=== PATIENT | female | born 1955 | race Two or more races ===

== ENCOUNTER 2019-01-27 07:36 | Inpatient (IN) | payer OTHER ==
[~2019-01-27] VITALS: Ht 165.1 cm; Wt 96.8 kg
--- NOTE | 2019-01-27 08:00 | NUR ---
KITCHENHAND NOTES PATIENT DIRECT ADMIT FROM [facility] BROUGHT BY AMBULANCE. PATIENT A/O X4 ZAMBIAN SPEAKER ON MED SURGE Dx. OF CHOLECYSTITIS. PATIENT WAS COMPLAINING OF PAIN IN RIGHT UPPER ABDOMEN 8/10 PER PAIN SCALE. PATIENT HAS NO ACUTE RESPIRATORY DISTRESS, UNLABORED, LUNGS ARE CLEAR DURING AUSCULTATION. V/S TAKEN BP-128/70,P-77, R-19, O2-94 ROOM AIR, T-99. SKIN ASSESSMENT DONE SKIN CLEAR, INTACT. PATIENT AMBULATORY USING BATHROOM. DAUGHTER NEXT TO THE BED. MRSA OF NARES SWAB TAKEN. DERRICK GRINDER OPERATOR AWARE OF NEW PATIENT. CALL LIGHT WITHIN TO REACH. BELONGING CHECKED. SAFETY PRECAUTION MAINTAINED ALL THE TIME. CONTINUED MONITORING.
[2019-01-27 08:15] VITALS: BP 128/70
[2019-01-27] MEDS ORDERED: ACETAMINOPHEN 325 MG TABLET PO PRN (11:30)
[2019-01-27] MEDS ORDERED: Z GUARD REMEDY 2 OZ OINT TP PRN (11:30)
[2019-01-27] MEDS ORDERED: MAG HYDROX/AL HYDROX/SIMETH 30 ML UDC PO PRN (11:30)
[2019-01-27] MEDS ORDERED: ONDANSETRON HCL/PF 4 MG/2 ML VIAL IVP PRN (11:30)
[2019-01-27] MEDS ORDERED: MAGNESIUM HYDROXIDE 30 ML UDC PO PRN (11:30)
[2019-01-27] MEDS ORDERED: ZOLPIDEM TARTRATE 5 MG TABLET PO PRN (11:30)
[2019-01-27] MEDS: IV NS 0.9% 1,000 ML IV PRN (11:48)
[2019-01-27] MEDS: HYDROMORPHONE 1 MG/1 ML DISP.SYRIN IV PRN (11:49)
--- NOTE | 2019-01-27 11:49 | NUR ---
RN NOTES ADMINISTERED DILAUDID 0.25 MG /ML IV PUSH PER PATIENT REQUEST FOR UPPER ABDOMINAL PAIN 06/22, V/S TAKEN BP 128/70, P-77, CONTINUED MONITORING.
[2019-01-27] MEDS: ENOXAPARIN SODIUM 40 MG/0.4 ML DISP.SYRIN SQ SCH (11:50)
[2019-01-27] MEDS ORDERED: CEFTRIAXONE 1 G in IV D5W 50 ML IV SCH (12:00)
[2019-01-27 12:28] LABS: ALBUMIN 3.9 g/dL (3.4-5.0); BILIRUBIN,TOTAL 0.5 mg/dL (0.2-1.0); CALCIUM, SERUM 9.1 mg/dL (8.5-10.1); CREATININE 0.8 mg/dL (0.6-1.3); PHOSPHORUS 3.8 mg/dL (2.5-4.9); POTASSIUM 3.5 mmol/L (3.5-5.1); TOTAL PROTEIN, SERUM 8.3 g/dL (6.4-8.2)
[2019-01-27 12:48] VITALS: BP 128/70
[2019-01-27 13:10] LABS: BASOPHILS % (AUTO) 0.1 % (0.0-2.0); EOSINOPHILS % (AUTO) 0.1 % (0.0-6.0); HEMATOCRIT 42 % (33-45); HEMOGLOBIN 14.2 g/dL (11.5-14.8); LYMPHOCYTES % (AUTO) 9.7 % (20.0-44.0); MEAN CORPUSCULAR HGB CONC 34 g/dl (31.0-36.0); MEAN CORPUSCULAR VOLUME 94 fL (82-100); MONOCYTES # (AUTO) 0.9 /CMM (0.1-1.30); MONOCYTES % (AUTO) 8.2 % (2.0-12.0); NEUTROPHILS # (AUTO) 8.6 /CMM (1.8-8.9); NEUTROPHILS % (AUTO) 81.9 % (43.0-81.0); PLATELET COUNT (AUTO) 212 /CMM (150-450); RED BLOOD CELL COUNT(AUTO) 4.42 MIL/uL (4.0-5.2); WHITE BLOOD COUNT (AUTO) 10.5 K/uL (4.3-11.0)
[2019-01-27 13:29] LABS: BILIRUBIN,DIRECT 0.1 mg/dL (0.0-0.2); BILIRUBIN,TOTAL 0.5 mg/dL (0.2-1.0)
--- NOTE | 2019-01-27 14:37 | NUR ---
RN NOTES PATIENT SPRAYER MACHINE FOR HIDA SCAN AT THIS TIME, PATIENT SIGN CONSENT FORM.
[2019-01-27] MEDS: PANTOPRAZOLE 40 MG VIAL IV SCH (14:39)
[2019-01-27 16:00] VITALS: BP 122/63
[2019-01-27] MEDS: HYDROCODONE/APAP 5/325MG 1 EACH TABLET PO PRN (16:07)
--- NOTE | 2019-01-27 16:07 | NUR ---
RN NOTES PATIENT BACK FROM HIDA SCAN,WAS COMPLAINING OF GENERALIZED PAIN 05/22, ADMINISTERED NARCO 5/325 MG PO PRN PER PATIENT REQUEST, FAMILY NEXT TO THE BED. CONTINUED MONITORING.
--- NOTE | 2019-01-27 16:10 | NUR ---
NM HIDA SCAN WAS COMPLETED. TECH:RB
--- NOTE | 2019-01-27 18:30 | NUR ---
RN NOTES PATIENT IN THE BED A/O X4 . PATIENT EATING, MEDICATION WERE ADMINISTERED FOR PAIN EFFECTIVE. INFUSING NS AT 75 ML/HE INTACT. FAMILY NEXT TO THE BED. CALL LIGHT WITHIN TO REACH. ENDORSED ONCOMING NURSE FOR PLAN OF CARE.
[2019-01-27 20:08] VITALS: BP 109/59
[2019-01-28] MEDS: HYDROCODONE/APAP 5/325MG 1 EACH TABLET PO PRN ×2 (01:27→11:08)
[2019-01-28] MEDS ORDERED: PIPERACILLIN /TAZOBACTAM 2.25 G VIAL IV ONE ×2 (01:41→06:01)
[2019-01-28] MEDS: PIPERACILLIN /TAZOBACTAM 4.5 G in IV D5W 50 ML IV SCH ×2 (01:42→06:27)
--- NOTE | 2019-01-28 06:00 | NUR ---
PT ALERT,ORIENTED, AMBULATORY ,WOLOF SPEAKING WITH FAMILY TRANSLATING. PT HAD CLEAR DIET FOR DINNER TOLERATED WELL ,DENIES ANY NAUSEA AND PAIN. THEN NPO AFTER MIDNIGHT. CONTINUE WITH IV FLUIDS ,GIVEN ZOSYN WITHOUT ADVERSE EFFECTS, URINE OBTAIN WILL SENT TO LAB. MEDICATED WITH AMBIEN AND NORCO FOR ABDOMIONAL PAIN EARLY THIS AM. WITH GOOD EFFECT ,SLEPT WELL. VSS,AFEBRILE .WILL CONTINUE TO MONITOR. CALL LIGHT AT REACHED.
[2019-01-28] MEDS: IV NS 0.9% 1,000 ML IV PRN (06:08)
[2019-01-28 06:29] LABS: BASOPHILS % (AUTO) 0.1 % (0.0-2.0); HEMATOCRIT 40 % (33-45); HEMOGLOBIN 13.3 g/dL (11.5-14.8); LYMPHOCYTES # (AUTO) 1.2 /CMM (0.8-4.8); LYMPHOCYTES % (AUTO) 7.9 % (20.0-44.0); MEAN CORPUSCULAR HGB CONC 34 g/dl (31.0-36.0); MEAN CORPUSCULAR VOLUME 93 fL (82-100); MONOCYTES # (AUTO) 1.8 /CMM (0.1-1.30); MONOCYTES % (AUTO) 12.1 % (2.0-12.0); NEUTROPHILS # (AUTO) 11.9 /CMM (1.8-8.9); NEUTROPHILS % (AUTO) 79.9 % (43.0-81.0); PLATELET COUNT (AUTO) 194 /CMM (150-450); RED BLOOD CELL COUNT(AUTO) 4.27 MIL/uL (4.0-5.2); WHITE BLOOD COUNT (AUTO) 14.8 K/uL (4.3-11.0)
[2019-01-28 06:46] LABS: APPEARANCE,URINE TURBID (CLEAR); BILIRUBIN,URINE NEGATIVE (NEGATIVE); BLOOD, URINE 1+ Ery/uL (NEGATIVE); KETONES,URINE 1+ (NEGATIVE); LEUKOCYTE ESTERASE ,URINE TRACE (NEGATIVE); NITRITE, URINE NEGATIVE (NEGATIVE); PH,URINE 6.5 (5.0-8.0); PROTEIN,URINE 1+ mg/dl (NEGATIVE); UGLUCOSE NEGATIVE (NEGATIVE); UROBILINOGEN,URINE 0.2 EU/dL (0.2)
[2019-01-28 06:48] LABS: COLOR,URINE DARK YELLOW (YELLOW)
[2019-01-28 06:51] LABS: CALCIUM, SERUM 8.6 mg/dL (8.5-10.1); CREATININE 0.7 mg/dL (0.6-1.3); MAGNESIUM 1.8 mg/dL (1.8-2.4); PHOSPHORUS 3.2 mg/dL (2.5-4.9); POTASSIUM 3.4 mmol/L (3.5-5.1)
[2019-01-28 06:56] LABS: BACTERIA,URINE Few /HPF (None Seen); WBC,URINE 0-2 /HPF (0-3)
[2019-01-28 06:57] LABS: SQUAMOUS EPITHELIAL CELL,UR Few /HPF (None Seen); URINE AMORPHOUS URATE Many /HPF (None Seen)
[2019-01-28 07:36] VITALS: BP 109/61
--- NOTE | 2019-01-28 08:00 | NUR ---
RN NOTES RECEIVED PATIENT IN THE BED RESTING. PATIENT NPO, NO ACUTE RESPIRATORY DISTRESS, V/S STABLE, PATIENT REFUSED PAIN AT THIS TIME. INFUSING NS AT LEFT AC AREA INTACT. SCHEDULED MEDICATION ADMINISTERED, PATIENT AMBULATORY, USING BATHROOM, CALL LIGHT WITHIN TO REACH, SAFETY PRECAUTION MAINTAINED ALL THE TIME.
--- NOTE | 2019-01-28 11:08 | NUR ---
rn notes administered narco 5/325 mg po prn for upper abdominal pain per patient request, v/s taken bp 110/69, p-92. continued monitoring.
[2019-01-28] MEDS: POTASSIUM CL. PREMIX PERIPHER. 50 ML IV SCH ×2 (11:42→12:34)
[2019-01-28] MEDS: ENOXAPARIN SODIUM 40 MG/0.4 ML DISP.SYRIN SQ SCH (11:46)
[2019-01-28] MEDS: PANTOPRAZOLE 40 MG VIAL IV SCH (13:46)
[2019-01-28] MEDS: PIPERACILLIN /TAZOBACTAM 3.375 G in IV D5W 100 ML IV SCH ×2 (13:46→20:27)
--- NOTE | 2019-01-28 15:58 | NUR ---
RN NOTES PATIENT STABLE AMBULATING IN THE HALLWAY, REFUSED PAIN, MEDICATION WERE ADMINISTERED EFFECTIVE, DAUGHTER NEXT TO THE PATIENT. CONTINUED MONITORING.
[2019-01-28 16:00] VITALS: BP 99/69
--- NOTE | 2019-01-28 18:35 | NUR ---
RN NOTES PATIENT IN THE BED STABLE, NPO. PATIENT REFUSED PAIN AT THIS TIME. INFUSING NS AT 75 ML/HR ON RIGHT AC AREA INTACT. DAUGHTER NEXT TO THE BED. CALL LIGHT WITHIN TO REACH. ENDORSED ONCOMING NURSE FOR PLAN OF CARE.
--- NOTE | 2019-01-28 19:00 | NUR ---
RN MS OPENING NOTES RECEIVED PATIENT IN BED AWAKE ALERT AND ORIENTED X4, ANGOLAN SPEAKING RESPIRATIONS EVEN AND UNLABORED WITH EQUAL RISE AND FALL OF CHEST, RESPIRATIONS EVEN AND UNLABORED WITH EQUAL RISE AND FALL OF CHEST, DENIES ANY PAIN OR DISCOMFORT , IV SITE TO LEFT HAND #22 AND RIGHT ARM #20, NO REDNESS, NO INFILTRATION, IVF RUNNING ORDERED, ORIENTED TO STAFF AND CALL LIGHT AND KEPT WITHIN REACH, SAFETY PRECAUTIONS IN PLACE, LOW BED AND LOCKED, BED ALARM IN PLACE, PATIENT AWARE OF NPO STATUS, ALL NEEDS ATTENDED AT THIS TIME, WILL CONTINUE TO MONITOR AND ADDRESS NEEDS.
[2019-01-28 20:00] VITALS: BP 111/72
[2019-01-28] MEDS: HYDROMORPHONE 1 MG/1 ML DISP.SYRIN IV PRN (20:59)
--- NOTE | 2019-01-28 20:59 | NUR ---
RN MS NOTES PATIENT COMPLAINT OF PAIN TO ABDOMEN AREA REQUESTING FOR PAIN MEDICATION ,STATES "8/10 ACHING PAIN " DILAUDID OFFERED AGREED TO TAKE DILAUDID 0.25 MG GIVEN ORDERED. REST WASTED AND VERIFIED WITH ANOTHER RN
[2019-01-29] VITALS (11 sets, daily range): BP systolic 87–117; BP diastolic 48–73
[2019-01-29] MEDS: HYDROMORPHONE 1 MG/1 ML DISP.SYRIN IV PRN (02:49)
[2019-01-29] MEDS: IV NS 0.9% 1,000 ML IV PRN (02:54)
[2019-01-29] MEDS: PIPERACILLIN /TAZOBACTAM 3.375 G in IV D5W 100 ML IV SCH ×3 (04:49→21:04)
--- NOTE | 2019-01-29 05:00 | NUR ---
RN MS NOTES RECEIVED CALLED FROM PER PATIENT IS SCHEDULED FOR LAPRASCOPIC CHOLECYSTECTOMY AT 10:30AM. TYPE AND SCREEN, CBC, BMP , PT, PTT, INR, IN PLACE ORDERED PER PROTOCOL. PATIENT MADE AWARE PER PATIENT WILL WAIT FOR DAUGHTER TO SIGN CONSENT FORMS IN AM.
--- NOTE | 2019-01-29 06:20 | NUR ---
RN MS NOTES PER FAMILY REQUESTED TO CALL IF ANY MD RECOMMENDATIONS CALLED NUMBER PROVIDED BY DAUGHTER FOR [place] [phone], UNABLE TO REACH AT THIS TIME, WILL ENDORSE TO NEXT SHIFT, ALSO MADE PATIENT AWARE IF SHE WOULD LIKE TO INFORM THEM WELL VIA HER PERSONAL CELL PHONE
--- NOTE | 2019-01-29 06:41 | NUR ---
RN MS CLOSING NOTES PATIENT IN BED AWAKE ALERT AND ORIENTED X4, BERMUDIAN SPEAKING , RESPIRATIONS EVEN AND UNLABORED WITH EQUAL RISE AND FALL OF CHEST, DENIES ANY PAIN OR DISCOMFORT AT THIS TIME , IV SITE TO LEFT HAND #22 AND RIGHT ARM #20, NO REDNESS, NO INFILTRATION, IVF RUNNING ORDERED, ZOSYN ATB RUNNING ORDERED, CALL LIGHT KEPT WITHIN REACH, SAFETY PRECAUTIONS IN PLACE, LOW BED AND LOCKED, BED ALARM IN PLACE, PATIENT AWARE OF NPO STATUS AND DR. HARDY PLAN FOR LAPRASCOPIC CHOLECYSTECTOMY, PER PATIENT WILL WAIT TO SIGN CONSENT WITH DAUGHTER, ALL NEEDS ATTENDED AT THROUGHOUT SHIFT, TOILETING OFFERED, WILL CONTINUE TO MONITOR AND ADDRESS NEEDS AND ENDORSE TO NEXT SHIFT.
[2019-01-29 06:47] LABS: BASOPHILS % (AUTO) 0.1 % (0.0-2.0); HEMATOCRIT 38 % (33-45); LYMPHOCYTES # (AUTO) 1.4 /CMM (0.8-4.8); LYMPHOCYTES % (AUTO) 8.7 % (20.0-44.0); MEAN CORPUSCULAR HGB CONC 35 g/dl (31.0-36.0); MEAN CORPUSCULAR VOLUME 94 fL (82-100); MONOCYTES # (AUTO) 1.9 /CMM (0.1-1.30); MONOCYTES % (AUTO) 11.6 % (2.0-12.0); NEUTROPHILS # (AUTO) 12.9 /CMM (1.8-8.9); NEUTROPHILS % (AUTO) 79.6 % (43.0-81.0); PLATELET COUNT (AUTO) 183 /CMM (150-450); RED BLOOD CELL COUNT(AUTO) 4.04 MIL/uL (4.0-5.2); WHITE BLOOD COUNT (AUTO) 16.2 K/uL (4.3-11.0)
[2019-01-29 07:01] LABS: CALCIUM, SERUM 8.4 mg/dL (8.5-10.1); CREATININE 0.7 mg/dL (0.6-1.3); PHOSPHORUS 2.4 mg/dL (2.5-4.9); POTASSIUM 3.3 mmol/L (3.5-5.1)
--- NOTE | 2019-01-29 07:30 | NUR ---
MS RN NOTES PATIENT RECEIVED RESTING INSIDE ROOM. AWAKE, ALERT AND ORIENTED, VERBALLY RESPONSIVE AND RESPONDS TO VERBAL AND TACTILE STIMULI. BREATHING EVEN AND UNLABORED. NO ACUTE DISTRESS AT THIS TIME. DENIES ANY PAIN OR DISCOMFORT. IV INTACT AND PATENT. PATIENT NPO SINCE MIDNIGHT. FOR YOLANDA LITTLE TODAY WITH DR. HARDY. PATIENT VERBALIZES UNDERSTANDING WITH EVERYTHING BUT WANTS TO WAIT FOR DAUGHTER PRIOR TO SIGNING ANY CONSENTS, MD AWARE. WILL CONTINUE TO MONITOR. BED LOCKED AND IN LOW POSITION. BILATERAL UPPER SIDE RAILS UP AND LOCKED. CALL LIGHT WITHIN EASY REACH
[2019-01-29] MEDS: POTASSIUM CL. PREMIX PERIPHER. 50 ML IV SCH ×2 (08:10→09:14)
--- NOTE | 2019-01-29 10:21 | NUR ---
MS RN NOTES PATIENT LEFT FOR SURGERY. PATIENT NOTED WITH TEMP OF 99.5. COOLING MEASURES IN PLACE. MD AWARE. PLACED CALL TO SURGICAL STAFF AND MADE AWARE. PATIENT LEFT UNIT VIA GURNEY. AWAKE, ALERT AND ORIENTED, NO ACUTE DISTRESS, NO CHANGES IN LOC NOTED. WILL CONTINUE TO MONITOR
[2019-01-29] MEDS ORDERED: HYDROMORPHONE INJ 2 MG/ML DISP.SYRIN ONE (10:24)
[2019-01-29] MEDS ORDERED: ROCURONIUM BROMIDE 50 MG/5 ML ONE ×2 (10:24→11:40)
[2019-01-29] MEDS ORDERED: BUPIVACAINE MPF 0.5% W/EPI INJ 30 ML VIAL ONE (11:08)
[2019-01-29] MEDS ORDERED: LIDOCAINE HCL/PF 1% 30 ML SDV ONE (11:08)
[2019-01-29] MEDS ORDERED: DESFLURANE 240 ML BOTTLE IH ONE (11:16)
[2019-01-29] MEDS: ENOXAPARIN SODIUM 40 MG/0.4 ML DISP.SYRIN SQ SCH (11:30)
[2019-01-29] MEDS ORDERED: CELLULOSE,OXIDIZED 1 EA PACK MC ONE (12:41)
[2019-01-29] MEDS ORDERED: Sodium Phosphate 7.5 MMOL in IV D5W 100 ML IV ONE (13:00)
[2019-01-29] MEDS: PANTOPRAZOLE 40 MG VIAL IV SCH (13:00)
[2019-01-29] MEDS ORDERED: BACITRACIN ZINC OINT (15 GM) 15 GM TUBE TP ONE (13:31)
--- NOTE | 2019-01-29 15:15 | NUR ---
MS RN NOTES PATIENT BACK TO FLOOR FROM RECOVERY. S/P CHOLECYSTECTOMY WITH DR. HARDY. REPORT RECEIVED FROM BETH SOLIS. PATIENT RECEIVED AWAKE, SLEEPY. VERBALLY RESPONSIVE AND RESPONDS TO VERBAL AND TACTILE STIMULI. NO ACUTE DISTRESS AT THIS TIME. HO DRAIN IN ABDOMEN AND DRAINING WELL. WILL CONTINUE TO MONITOR. ORDERS FROM DR. GUY, NOTED AND CARRIED OUT. PATIENT OK TO HAVE ICE CHIPS ONLY TODAY PER DR. HADRY. OK TO HAVE CLEAR LIQUID DIET STARTING TOMORROW AM. PATIENT MADE AWARE AND VERBALIZED UNDERSTANDING. WILL CONTINUE TO MONITOR.
[2019-01-29] MEDS: IV LR 1000 ML 1,000 ML IV PRN (18:07)
[2019-01-29] MEDS ORDERED: ONDANSETRON HCL/PF 4 MG/2 ML VIAL IVP PRN (18:30)
--- NOTE | 2019-01-29 18:38 | NUR ---
MS RN NOTES PATIENT RESTING INSIDE ROOM. SLEEPING, EASILY AROUSABLE THROUGH VERBAL AND TACTILE STIMULI. BREATHING EVEN AND UNLABORED. NO CHANGES IN LOC NOTED AT THIS TIME. NO ACUTE DISTRESS NOTED. CONTINUE ON MONITORING 2 S/P CHOLECYSTECTOMY WITH DR. HARDY. HO DRAIN PRESENT ABDOMEN WITH SANGUINEOUS DRAINAGE NOTED AT THIS TIME, DRAING WELL. IV INTACT AND PATENT. WILL ENDORSE TO INCOMING FOR VERONICA. BED LOCKED AND IN LOW POSITION. BILATERAL UPPER SIDE RAILS UP AND LOCKED. CALL LIGHT WITHIN EASY REACH
--- NOTE | 2019-01-29 19:35 | NUR ---
RN NOTES RECEIVED PATIENT, CHADIAN SPEAKING FAMILY MEMBERS AT BEDSIDE, PATIENT IS AWAKE, NO APPARENT DISTRESS NOTED, C/O MILD TOLERABLE PAIN, S/P LAP ANABEL, BREATHING EVEN AND UNLABORED, REPOSITIONED FOR COMFORT, ALL SAFETY MEASURES IN PLACED, ASPIRATION PRECAUTION MAINTAINED. IV ACCESS INTACT AND PATENT, WILL MONITOR ACCORDINGLY.
--- NOTE | 2019-01-29 19:50 | NUR ---
RN NOTES HO DRAINING WELL, TO A SEROSANGUINOUS FLUIDS, WILL CONTINUE TO MONITOR.
[2019-01-30] MEDS: MORPHINE SULFATE INJ 4 MG/ML DISP.SYRIN IV PRN ×2 (02:19→08:59)
[2019-01-30] MEDS: IV LR 1000 ML 1,000 ML IV PRN ×2 (02:44→09:21)
[2019-01-30] MEDS: PIPERACILLIN /TAZOBACTAM 3.375 G in IV D5W 100 ML IV SCH ×3 (04:57→20:09)
[2019-01-30 06:45] LABS: BASOPHILS % (AUTO) 0.1 % (0.0-2.0); EOSINOPHILS % (AUTO) 0.1 % (0.0-6.0); HEMATOCRIT 33 % (33-45); HEMOGLOBIN 11.1 g/dL (11.5-14.8); LYMPHOCYTES # (AUTO) 0.9 /CMM (0.8-4.8); LYMPHOCYTES % (AUTO) 7.4 % (20.0-44.0); MEAN CORPUSCULAR HGB CONC 34 g/dl (31.0-36.0); MEAN CORPUSCULAR VOLUME 94 fL (82-100); MONOCYTES # (AUTO) 1.2 /CMM (0.1-1.30); MONOCYTES % (AUTO) 9.4 % (2.0-12.0); NEUTROPHILS # (AUTO) 10.6 /CMM (1.8-8.9); PLATELET COUNT (AUTO) 196 /CMM (150-450); RED BLOOD CELL COUNT(AUTO) 3.46 MIL/uL (4.0-5.2); WHITE BLOOD COUNT (AUTO) 12.8 K/uL (4.3-11.0)
[2019-01-30 06:53] LABS: CALCIUM, SERUM 8.4 mg/dL (8.5-10.1); CREATININE 0.6 mg/dL (0.6-1.3); MAGNESIUM 1.9 mg/dL (1.8-2.4); PHOSPHORUS 2.3 mg/dL (2.5-4.9); POTASSIUM 3.9 mmol/L (3.5-5.1)
--- NOTE | 2019-01-30 06:54 | NUR ---
RN NOTES ALL NEEDS ATTENDED AND MET, ABLE TO REST AND SLEEP WITH MINIMAL DISCOMFORT. WILL ENDORSE TO AM NURSE FOR CONTINUITY OF CARE.
[2019-01-30 08:00] VITALS: BP 112/58
[2019-01-30 09:09] VITALS: BP 119/70
[2019-01-30] MEDS ORDERED: NEUTRA PHOS 1 POWD.PACKET PO ONE (10:30)
[2019-01-30] MEDS: PANTOPRAZOLE 40 MG VIAL IV SCH (13:00)
[2019-01-30] MEDS: HYDROCODONE/APAP 5/325MG 1 EACH TABLET PO PRN ×2 (13:15→17:32)
[2019-01-30] MEDS: ENOXAPARIN SODIUM 40 MG/0.4 ML DISP.SYRIN SQ SCH (13:15)
--- NOTE | 2019-01-30 14:13 | NUR ---
MEDICATION OF SODIUM PHOSSPHATE WAS DUE YESTERDAY
[2019-01-30 16:00] VITALS: BP 96/62
[2019-01-30] MEDS ORDERED: PANTOPRAZOLE 40 MG TABLET.DR PO ONE (17:00)
--- NOTE | 2019-01-30 19:25 | NUR ---
192 patient remain comfortable afebrile , tolerating clear liq diet with nausea , pt ambulated twice in the hallway , denies passing flatus , suad drain emptied 10cc, will endorse to night nurse
--- NOTE | 2019-01-30 19:45 | NUR ---
RN NOTES RECEIVED PATIENT AWAKE IN BED. A/O X 4. NO SIGNS OF RESPIRATORY DISTRESS. DENIES SHORTNESS OF BREATH. DENIES PASSING FLATUS. NO COMPLAINTS OF PAIN AT THIS TIME. ALL IV SITES PATENT. SAFETY PRECAUTIONS IMPLEMENTED: CALL LIGHT WITHIN REACH, BED IN LOWEST POSITION, SIDE RAILS UP X2, BED LOCKED. WILL CONTINUE TO MONITOR PATIENT THROUGHOUT THE SHIFT.
[2019-01-30 20:00] VITALS: BP 98/62
--- NOTE | 2019-01-30 20:32 | NUR ---
RN NOTES: RECEIVED CALL FROM DR HARDY, ASKING HOW PATIENT IS DOING, RELAYED ALL LAB RESULT FOR TODAY, PER MD TO GIVE 2GM OF MAGNESIUM IV TONIGHT, AND ADVANCED PT'S DIET TO SOFT IN AM.
[2019-01-30] MEDS: Magnesium 1GM/D5W 100ML PREMIX 100 ML IV SCH ×2 (20:50→22:12)
[2019-01-30] MEDS ORDERED: Magnesium 1GM/D5W 100ML PREMIX PIGGYBACK IV ONE (21:00)
[2019-01-31 00:42] VITALS: BP 117/69
[2019-01-31] MEDS: MORPHINE SULFATE INJ 4 MG/ML DISP.SYRIN IV PRN (00:43)
--- NOTE | 2019-01-31 00:44 | NUR ---
PRN MORPHINE: PT C/O 07/23 ABDOMINAL PAIN REQUESTING FOR MORPHINE, PRN MORPHINE 3MG IVP ADMINISTERED AT THIS TIME, WILL CONTINUE TO MONITOR AND REASSESS
[2019-01-31] MEDS: PIPERACILLIN /TAZOBACTAM 3.375 G in IV D5W 100 ML IV SCH ×3 (03:54→21:17)
[2019-01-31] MEDS: IV LR 1000 ML 1,000 ML IV PRN ×2 (03:55→11:34)
--- NOTE | 2019-01-31 06:00 | NUR ---
RN NOTES: EMPTIED HO DRAIN, OBTAINED 25ML OF BROWNISH COLOR SURGICAL DRAINAGE
[2019-01-31 06:33] LABS: BASOPHILS % (AUTO) 0.2 % (0.0-2.0); EOSINOPHILS % (AUTO) 1.1 % (0.0-6.0); HEMATOCRIT 31 % (33-45); HEMOGLOBIN 10.8 g/dL (11.5-14.8); LYMPHOCYTES # (AUTO) 1.4 /CMM (0.8-4.8); LYMPHOCYTES % (AUTO) 19.3 % (20.0-44.0); MEAN CORPUSCULAR HGB CONC 35 g/dl (31.0-36.0); MEAN CORPUSCULAR VOLUME 94 fL (82-100); MONOCYTES # (AUTO) 0.7 /CMM (0.1-1.30); MONOCYTES % (AUTO) 9.5 % (2.0-12.0); NEUTROPHILS # (AUTO) 5.1 /CMM (1.8-8.9); NEUTROPHILS % (AUTO) 69.9 % (43.0-81.0); PLATELET COUNT (AUTO) 210 /CMM (150-450); RED BLOOD CELL COUNT(AUTO) 3.34 MIL/uL (4.0-5.2); WHITE BLOOD COUNT (AUTO) 7.3 K/uL (4.3-11.0)
[2019-01-31 06:44] LABS: CALCIUM, SERUM 8.4 mg/dL (8.5-10.1); CREATININE 0.6 mg/dL (0.6-1.3); POTASSIUM 3.5 mmol/L (3.5-5.1)
--- NOTE | 2019-01-31 06:51 | NUR ---
RN CLOSING NOTES: PT IN BED, AWAKE, RESPIRATION EVEN AND UNLABORED, LAST PAIN MEDS ADMINISTERED AT 0043. DENIES ANY PAIN AT THIS TIME. PT ABLE TO USE IS WHILE AWAKE. IV ACCESS REMAINS PATENT AND FLUSHING WELL, INFUSING WITH LR AT 150ML/HR. ABDL DRESSING REMAINS C/D/I, NO ACTIVE BLEEDING NOTED, ABDL BINDER IN USE. NO N/V NOTED THROUGHOUT THE SHIFT. PT TOLERATED CLEAR LIQUID DIET WELL, WILL ADVANCE TO SOFT PER MD ORDER. BLE OFFLOADED ON PILLOWS. VS REMAINS STABLE, NEEDS ATTENDED. SAFETY PRECAUTIONS FOR FALL REMAINS ENGAGED, CALL LIGHT IN REACH, WILL ENDORSE TO DAY RN FOR CONTINUITY OF CARE
--- NOTE | 2019-01-31 07:28 | NUR ---
MS RN OPENING NOTE RECEIVED PT SITTING UP IN CHAIR, A/O X4, PRIMARILY SLOVENIAN SPEAKING BUT ABLE TO MAKE BASIC NEEDS KNOWN VIA BELIZEAN. PT DENIES CHEST PAIN, SOB, N/V. BREATHING IS EVEN AND UNLABORED ON ROOM AIR. LEFT HAND #22G IV IS INFUSING LR @ 150ML/HR WITHOUT REDNESS OR SWELLING. R FA #20G IV IS SALINE LOCKED WITHOUT REDNESS OR SWELLING. HO DRAIN PRESENT WITH CLEAR, BROWN DRAINAGE, ABD SURGICAL DRESSINGS ARE CLEAN, DRY AND INTACT. ALL NEEDS ATTENDED TO. BED IS LOCKED AND IN LOWEST POSITION, SIDE RAILS UP X2, CALL LIGHT AND POSSESSIONS WITHIN REACH.
[2019-01-31] MEDS ORDERED: PANTOPRAZOLE 40 MG TABLET.DR PO SCH (07:30)
[2019-01-31 08:00] VITALS: BP 111/61
[2019-01-31] MEDS: PANTOPRAZOLE 40 MG TABLET.DR PO SCH (08:12)
[2019-01-31] MEDS: HYDROCODONE/APAP 5/325MG 1 EACH TABLET PO PRN ×3 (08:19→21:52)
[2019-01-31] MEDS: ENOXAPARIN SODIUM 40 MG/0.4 ML DISP.SYRIN SQ SCH (11:35)
--- NOTE | 2019-01-31 15:25 | NUR ---
MS RN NOTE INFORMED ABE MOSHER NP REGARDING PT C/O OF INTERMITTENT SOB. VS STABLE ON ROOM AIR, PT DENIES SOB WITH AMBULATION AND STATES THAT SITING UP PROVIDES RELIEF FROM SOB. PT DENIES ANY CALF PAIN OR TENDERNESS, NO S/S OF SWELLING OR REDNESS OF EITHER CALF. PT STATES SHE HAS NOT BEEN USING INCENTIVE SPIROMETER FREQUENTLY. ORDERS RECEIVED AND INITIATED.
[2019-01-31] MEDS ORDERED: ALBUTEROL FS 2.5 MG/0.5 ML VIAL.NEB NEB PRN (15:30)
--- NOTE | 2019-01-31 18:27 | NUR ---
MS RN CLOSING NOTE PT SITTING UP IN BED, A/O X4, PRIMARILY SLOVAK SPEAKING BUT ABLE TO MAKE BASIC NEEDS KNOWN VIA WALLISIAN. PT DENIES CHEST PAIN, SOB, N/V. BREATHING IS EVEN AND UNLABORED ON ROOM AIR. LEFT HAND #22G IV I SALINE LOCKED WITHOUT REDNESS OR SWELLING. R FA #20G IV IS SALINE LOCKED WITHOUT REDNESS OR SWELLING. HO DRAIN PRESENT WITH OUTPUT OF 20ML OF BROWN, THIN DRAINAGE DURING THE SHIFT. ADLS PROVIDED. SCDS IN PLACE, INCENTIVE SPIROMETER AT THE BEDSIDE, PT DEMONSTRATED SUCCESSFUL USE THROUGHOUT THE SHIFT. ALL NEEDS ATTENDED TO. BED IS LOCKED AND IN LOWEST POSITION, SIDE RAILS UP X2, CALL LIGHT AND POSSESSIONS WITHIN REACH. WILL ENDORSE TO INDUSTRIAL PROPERTY APPRAISER NURSE FOR CONTINUITY OF CARE.
--- NOTE | 2019-01-31 18:32 | NUR ---
MS RN NOTE SPOKE WITH DR. HARDY ON THE PHONE. UPDATED ON PT CONDITION, RECEIVED ORDERS TO D/C LR @ 150ML/HR. PER DR. HRADY HE WILL SEE PT TOMORROW AND POSSIBLY D/C HO DRAIN.
--- NOTE | 2019-01-31 19:45 | NUR ---
RECEIVED PT IN BED AWAKE AND ALERT WITH DTR AT THE BED SIDE . BREATHING EVENLY. NO SOB. NAD. SKIN WARM AND DRY. DRESSING ON ABD C/D/I . HO DRAINAGE IN PLACE DRAINING BROWNISH FLUID. PAIN TOLERATED WELL. NEEDS ATTENDED. BED LOW LOCKED. CALL LIGHT WITHIN REACH. SRX2. WILL CONT TO MONITOR AND WILL ENDORSE TO AM SHIFT FOR VERONICA.
[2019-01-31 20:00] VITALS: BP 102/60
--- NOTE | 2019-01-31 21:53 | NUR ---
NORCO GIVEN ORDERED FOR C/O ABD PAIN. WILL CONT TO MONITOR,
--- NOTE | 2019-02-01 03:37 | NUR ---
PT WAS ASSISTED TO THE BATHROOM/ FELICIA WELL
[2019-02-01] MEDS: PIPERACILLIN /TAZOBACTAM 3.375 G in IV D5W 100 ML IV SCH ×3 (04:55→20:24)
[2019-02-01 06:35] LABS: BASOPHILS % (AUTO) 0.3 % (0.0-2.0); EOSINOPHILS % (AUTO) 3.3 % (0.0-6.0); HEMATOCRIT 31 % (33-45); HEMOGLOBIN 10.7 g/dL (11.5-14.8); LYMPHOCYTES # (AUTO) 1.4 /CMM (0.8-4.8); LYMPHOCYTES % (AUTO) 25.2 % (20.0-44.0); MEAN CORPUSCULAR HGB CONC 34 g/dl (31.0-36.0); MEAN CORPUSCULAR VOLUME 93 fL (82-100); MONOCYTES # (AUTO) 0.6 /CMM (0.1-1.30); MONOCYTES % (AUTO) 10.6 % (2.0-12.0); NEUTROPHILS # (AUTO) 3.5 /CMM (1.8-8.9); NEUTROPHILS % (AUTO) 60.6 % (43.0-81.0); PLATELET COUNT (AUTO) 227 /CMM (150-450); RED BLOOD CELL COUNT(AUTO) 3.33 MIL/uL (4.0-5.2); WHITE BLOOD COUNT (AUTO) 5.7 K/uL (4.3-11.0)
[2019-02-01 06:53] LABS: CALCIUM, SERUM 8.4 mg/dL (8.5-10.1); CREATININE 0.6 mg/dL (0.6-1.3); POTASSIUM 3.4 mmol/L (3.5-5.1)
--- NOTE | 2019-02-01 07:19 | NUR ---
PT IN BED AWAKE AND ALERT. BREATHING EVENLY. PAIN MEDICATIONS GIVEN ORDERED PER PT'S REQUEST. PAIN UNDER CONTROL. NO N/V REPORTED. NEEDS ATTENDED. ASSISTED W/ ADLS. BED LOW LOCKED. CALL LIGHT WITHIN REACH. REPORT GIVEN TO WILL VIRK. FOR VERONICA.
--- NOTE | 2019-02-01 07:34 | NUR ---
MS RN OPENING NOTE RECEIVED PT SITTING IN BED, A/O X4, PRIMARILY JAPANESE SPEAKING BUT ABLE TO MAKE BASIC NEEDS KNOWN VIA ITALIAN. PT DENIES CHEST PAIN, SOB, N/V. BREATHING IS EVEN AND UNLABORED ON ROOM AIR. LEFT HAND #22G IV AND R FA #20G IVS ARE SALINE LOCKED WITHOUT REDNESS OR SWELLING. HO DRAIN PRESENT WITH CLEAR, BROWN DRAINAGE, ABD SURGICAL DRESSINGS ARE CLEAN, DRY AND INTACT. ALL NEEDS ATTENDED TO. BED IS LOCKED AND IN LOWEST POSITION, SIDE RAILS UP X2, CALL LIGHT AND POSSESSIONS WITHIN REACH.
[2019-02-01] MEDS: PANTOPRAZOLE 40 MG TABLET.DR PO SCH (07:45)
[2019-02-01] MEDS: HYDROCODONE/APAP 5/325MG 1 EACH TABLET PO PRN (07:45)
[2019-02-01 08:00] VITALS: BP 118/71
--- NOTE | 2019-02-01 09:33 | NUR ---
MS RN NOTE DR. HARDY AT THE BEDSIDE FOR PT EVALUATION. REMOVED HO DRAIN AND CHANGED ABD DRESSINGS. ADDITIONAL ORDERS RECEIVED AND INITIATED. PER PT WILL MOST LIKELY BE CLEAR FOR D/C TOMORROW.
[2019-02-01] MEDS ORDERED: IBUPROFEN 200 MG TABLET PO SCH (10:00)
[2019-02-01] MEDS: ACETAMINOPHEN 325 MG TABLET PO SCH ×2 (10:10→17:21)
[2019-02-01] MEDS: GABAPENTIN 300 MG CAPSULE PO SCH ×2 (10:10→17:21)
--- NOTE | 2019-02-01 10:15 | NUR ---
MS RN NOTE RIGHT FA PERIPHERAL IV FOUND TO BE INFILTRATED WITH MILD SWELLING NOTED AT THE IV SITE. REMOVED WITH CATHETER TIP INTACT. ARM ELEVATED ON PILLOWS AND ICE PACK PROVIDED. PT DENIES PAIN AT THIS TIME. LEFT HAND IV IS PATENT, CLEAN, DRY AND INTACT.
[2019-02-01] MEDS ORDERED: POTASSIUM CHLORIDE 20 MEQ TAB.PRT.SR PO SCH (11:30)
[2019-02-01] MEDS: ENOXAPARIN SODIUM 40 MG/0.4 ML DISP.SYRIN SQ SCH (12:18)
--- NOTE | 2019-02-01 12:18 | NUR ---
MS RN NOTE LEFT HAND IV FOUND TO BE LEAKING WHEN FLUSHED. REMOVED WITH CATHETER TIP INTACT. NEW IV INSERTED AT THE LEFT FA #22G AND IS PATENT, CLEAN, DRY AND INTACT. PT TOLERATED PROCEDURE WELL.
[2019-02-01 16:00] VITALS: BP 102/65
[2019-02-01] MEDS ORDERED: IBUPROFEN 400 MG TABLET PO SCH (17:18)
[2019-02-01] MEDS: IBUPROFEN 400 MG TABLET PO SCH (17:21)
--- NOTE | 2019-02-01 18:36 | NUR ---
MS RN CLOSING NOTE PT SITTING UP IN BED, A/O X4, PRIMARILY GUATEMALAN SPEAKING BUT ABLE TO MAKE BASIC NEEDS KNOWN VIA HONG KONGER. PT DENIES CHEST PAIN, SOB, N/V. BREATHING IS EVEN AND UNLABORED ON ROOM AIR. JOHN FA #22G IV IS SALINE LOCKED WITHOUT REDNESS OR SWELLING. HO DRAIN D/C TODAY BY DR. HARDY AND ABD DRESSINGS REPLACED. DRESSING IS CLEAN, DRY AND INTACT. ADLS PROVIDED. SCDS IN PLACE, INCENTIVE SPIROMETER AT THE BEDSIDE, PT DEMONSTRATED SUCCESSFUL USE THROUGHOUT THE SHIFT. ALL NEEDS ATTENDED TO. BED IS LOCKED AND IN LOWEST POSITION, SIDE RAILS UP X2, CALL LIGHT AND POSSESSIONS WITHIN REACH. WILL ENDORSE TO BOXER OPERATOR NURSE FOR CONTINUITY OF CARE.
--- NOTE | 2019-02-01 19:45 | NUR ---
MS RN NOTE: PATIENT RESTING IN BED, NO ACUTE DISTRESS NOTED, FAMILY AT BEDSIDE. BREATHING EVEN AND UNLABORED, NO SOB NOTED. IV TO LFA IN PLACE. BED LOCKED AND IN LOWEST POSITION, CALL LIGHT IN REACH. WILL CONTINUE TO MONITOR.
[2019-02-01 20:11] VITALS: BP 106/66
--- NOTE | 2019-02-01 21:40 | NUR ---
MS RN NOTE: PATIENT COMPLAINS OF CONSTIPATION AND DIFFICULTY HAVING BOWEL MOVEMENT, MILK OF MAGNESIA 30ML GIVEN PER MD ORDER. WILL CONTINUE TO MONITOR.
[2019-02-02] MEDS: GABAPENTIN 300 MG CAPSULE PO SCH ×2 (01:26→10:28)
[2019-02-02] MEDS: IBUPROFEN 400 MG TABLET PO SCH ×2 (01:27→10:28)
[2019-02-02] MEDS: ACETAMINOPHEN 325 MG TABLET PO SCH ×2 (01:27→10:28)
[2019-02-02] MEDS: PIPERACILLIN /TAZOBACTAM 3.375 G in IV D5W 100 ML IV SCH ×2 (03:50→11:49)
--- NOTE | 2019-02-02 06:30 | NUR ---
MS RN NOTE: PATIENT RESTING IN BED, NO ACUTE DISTRESS NOTED. BREATHING EVEN AND UNLABORED, NO SOB NOTED. IV TO LFA IN PLACE. BED LOCKED AND IN LOWEST POSITION, CALL LIGHT IN REACH. WILL ENDORSE TO DAY NURSE TO CONTINUE WITH PLAN OF CARE.
--- NOTE | 2019-02-02 07:14 | NUR ---
MS RN OPENING NOTE RECEIVED PT SITTING IN BED, A/O X4, PRIMARILY VENEZUELAN SPEAKING BUT ABLE TO MAKE BASIC NEEDS KNOWN VIA LUXEMBOURGISH. PT DENIES CHEST PAIN, SOB, N/V. BREATHING IS EVEN AND UNLABORED ON ROOM AIR. LEFT FA #22G IS SALINE LOCKED WITHOUT REDNESS OR SWELLING. SCDS IN PLACE. ABD SURGICAL DRESSINGS ARE CLEAN, DRY AND INTACT. ALL NEEDS ATTENDED TO. BED IS LOCKED AND IN LOWEST POSITION, SIDE RAILS UP X2, CALL LIGHT AND POSSESSIONS WITHIN REACH.
[2019-02-02 07:48] LABS: BASOPHILS % (AUTO) 0.6 % (0.0-2.0); EOSINOPHILS % (AUTO) 5.5 % (0.0-6.0); HEMATOCRIT 29 % (33-45); HEMOGLOBIN 10.1 g/dL (11.5-14.8); LYMPHOCYTES # (AUTO) 1.6 /CMM (0.8-4.8); LYMPHOCYTES % (AUTO) 29.2 % (20.0-44.0); MEAN CORPUSCULAR HGB CONC 35 g/dl (31.0-36.0); MEAN CORPUSCULAR VOLUME 94 fL (82-100); MONOCYTES # (AUTO) 0.5 /CMM (0.1-1.30); MONOCYTES % (AUTO) 9.4 % (2.0-12.0); NEUTROPHILS # (AUTO) 3.1 /CMM (1.8-8.9); NEUTROPHILS % (AUTO) 55.3 % (43.0-81.0); PLATELET COUNT (AUTO) 253 /CMM (150-450); RED BLOOD CELL COUNT(AUTO) 3.12 MIL/uL (4.0-5.2); WHITE BLOOD COUNT (AUTO) 5.6 K/uL (4.3-11.0)
[2019-02-02 08:00] VITALS: BP_SYST 109; BP_SYST 119; BP_DIAS 74
[2019-02-02 08:07] LABS: CALCIUM, SERUM 8.5 mg/dL (8.5-10.1); CREATININE 0.6 mg/dL (0.6-1.3); POTASSIUM 3.7 mmol/L (3.5-5.1)
[2019-02-02] MEDS: PANTOPRAZOLE 40 MG TABLET.DR PO SCH (08:11)
[2019-02-02] MEDS: HYDROCODONE/APAP 5/325MG 1 EACH TABLET PO PRN (08:15)
--- NOTE | 2019-02-02 10:30 | NUR ---
MS RN NOTE PER PT, HER DAUGHTER WILL BE ABLE TO PICK HER UP FOR DISCHARGE AT APPROXIMATELY 5PM TODAY.
[2019-02-02] MEDS: ENOXAPARIN SODIUM 40 MG/0.4 ML DISP.SYRIN SQ SCH (12:01)
[2019-02-02 16:00] VITALS: BP 106/62
--- NOTE | 2019-02-02 17:00 | NUR ---
MS RN PT DISCHARGED PT DISCHARGED HOME VIA PRIVATE CAR IN MEDICALLY STABLE CONDITION. ACCOMPANIED BY DAUGHTER [place]. VS WNL, PT IS A/OX4, DENIES SOB, CHEST PAIN, N/V. BREATHING IS EVEN AND UNLABORED ON ROOM AIR. ABD INCISIONS ARE WITHOUT REDNESS, SWELLING, OR ANY DRAINAGE. DRESSING CHANGED PRIOR TO D/C, WOUND DOCUMENTATION COMPLETED. LEFT FA PERIPHERAL IV REMOVED WITH CATHETER TIP INTACT. DISCHARGE EDUCATION AND PAPERWORK PROVIDED PER PROTOCOL. DISCUSSED DISCHARGE RECOMMENDATIONS TO FOLLOW UP WITH PCP AND DR. HARDY WITHIN ONE WEEK, PROVIDED OFFICE PHONE NUMBER FOR DR. HARDY. INFORMED PT AND DAUGHTER TO CALL 911 OR RETURN TO THE NEAREST ER FOR CHEST PAIN, SOB, TEMPERATURE THAT DOES NOT GO DOWN WITH TYLENOL ADMINISTRATION, MELENA, NAUSEA, VOMITING, UNILATERAL CALF SWELLING, INCREASED OR FOUL DRAINAGE OR REDNESS, WARMTH, OR SWELLING FROM THE SURGICAL SITE. DISCUSSED APPROPRIATE USE OF PRESCRIBED MEDICATION AND READING MATERIAL PROVIDED. PT AND DAUGHTER VERBALIZED UNDERSTANDING. ALL BELONGINGS ACCOUNTED FOR AND BELONGINGS LIST SIGNED AND PLACED IN CHART. THE NURSE ACCOMPANIED THE PT TO THE MAIN LOBBY VIA WHEELCHAIR WITHOUT INCIDENT.
== END 2019-02-02 17:00 | disposition home or self-care (01) | DRG 263 ==
LOC: MED 07:36 → MEDSG2 01-31 16:41
PROVIDERS: ADMIT Internal Medicine; ATTEND Nurse Practitioner Acute Care
PROC: 0FT40ZZ Resection of Gallbladder, Open Approach (ICD-10-PCS; principal; 2019-01-27)
DX: K80.01 Calculus of gallbladder with acute cholecystitis with obstruction (principal); K85.90 Acute pancreatitis without necrosis or infection, unspecified; E87.1 Hypo-osmolality and hyponatremia; N39.0 Urinary tract infection, site not specified; E78.5 Hyperlipidemia, unspecified; E66.9 Obesity, unspecified; Z68.35 Body mass index [BMI] 35.0-35.9, adult; B96.89 Other specified bacterial agents as the cause of diseases classified elsewhere; R74.0 Nonspecific elevation of levels of transaminase and lactic acid dehydrogenase [LDH]; K82.A1 Gangrene of gallbladder in cholecystitis
CPT/HCPCS: 36415; 71045-TC; 78226; 80048-TC; 80053-TC; 81000-TC; 82247-TC; 82248-TC; 83690-TC; 83735-TC; 84100-TC; 85025-TC; 85610-TC; 85730-TC; 86850-TC; 87081-TC; 88304-TC; A4216; A6402; A9537; A9563; C9113; G0378; J0330; J0696; J1100; J1170; J1650; J1885; J2270; J2405; J2543; J2704; J2710; J3475; J3480; J3490; J7030; J7050; J7060; J7120